=== PATIENT | male | born 1960 | race Caucasian/White ===

== ENCOUNTER → 2021-10-01 10:12 | Outpatient (CLI) | payer OTHER, SELFPAY ==
[2021-10-01 12:00] LABS: COVID19 -Nasal RAPID Negative (Negative)
== END ==
PROVIDERS: Visit Provider Family Medicine Sleep Medicine
DX: Z20.822 Contact with and (suspected) exposure to COVID-19 (principal)
CPT/HCPCS: 87635

== ENCOUNTER → 2021-10-01 12:28 | Outpatient (CLI) | payer OTHER, SELFPAY ==
--- NOTE | 2021-10-01 | DI.ECHO.S_ITS ---
[facility] +---------+ : : [address] : [place] : : : : [id number] : : : : Phone: [phone]---------+ Echocardiogram Report + + :Name: VINICIUS WEBER Study Date: 10/01/2021 Height: 73 in : :[facility] ReadingLocation: Weight: 330 lb : : Gender: Male BSA: 2.7 m2 : :: 1960 Age: 61 yrs BP: 146/101 mmHg: :Reason For Study: Dyspnea : :Ordering Physician: ANALISA : :STEPH Performed By: Jorje Beck : :Referring: STEPH HAUSER : + + Interpretation Summary The ejection fraction is estimated to be 60-65%. Diastolic parameters suggest probable normal left ventricular diastolic function and normal filling pressures. The right ventricle is normal in size and function. No significant valvular abnormalities. Unable to estimate PASP. Procedure: A two-dimensional transthoracic echocardiogram with color flow and Doppler was performed. The study quality was technically difficult. There is no prior echocardiogram noted for this patient. A contrast injection of Definity was performed to improve assessment of LV function. Left Ventricle: Left ventricular wall thickness is borderline increased. The left ventricle is grossly normal size. Left ventricular systolic function is normal. The ejection fraction is estimated to be 60-65%. There are no focal wall motion abnormalities. Diastolic parameters suggest probable normal left ventricular diastolic function and normal filling pressures. Right Ventricle: The right ventricle is normal in size and function. Atria: Both atria are normal in size. The interatrial septum grossly appears intact with no obvious evidence for an atrial septal defect. Mitral Valve: The mitral valve is normal in structure and function. There is no mitral regurgitation noted. Aortic Valve: The aortic valve opens well. There is no aortic valve stenosis. There is trace aortic regurgitation. Tricuspid Valve: The tricuspid valve is normal in structure and function. No tricuspid regurgitation. Pulmonary artery pressures cannot be estimated because of the lack of a measurable TR jet velocity. Pulmonic Valve: The pulmonic valve is not well visualized. Great Vessels: The aortic root is mildly dilated. The ascending aorta could not be visualized. The IVC is of normal diameter and collapses greater than 50% with a sniff. This suggests a low right atrial pressure of 3 mm Hg. Pericardium/ Pleura There is no pericardial effusion. There is no pleural effusion. MMode/2D Measurements & Calculations LVIDd: 0.40 cm LVOT diam: 2.6 cm IVSd: 1.2 cm Ao root diam: 4.1 cm LV wallis. diameter/BSA (cm/m^2): 0.15 LA A2 area: 16.8 cm2 RA long axis: 5.3 cm LA A4 area: 16.1 cm2 LA length (vol): 5.1 cm LA vol: 45.2 ml LA vol index: 17.0 ml/m2 TAPSE_phl: 3.2 cm Doppler Measurements & Calculations Ao V2 max: 125.0 cm/sec LVOT Max Ramírez: 120.0 cm/sec Ao V2 mean: 88.6 cm/sec LV V1 max P.8 mmHg Ao max P.0 mmHg LV V1 VTI: 20.1 cm Ao mean P.0 mmHg CRISELDA(I,D): 5.5 cm2 Ao V2 VTI: 19.3 cm CRISELDA(V,D): 5.1 cm2 sev ratio: 1.0 CRISELDA indexed to BSA (cm^2/m^2): 2.1 MV E max ramírez: 74.2 cm/sec SV(LVOT): 106.7 ml MV A max ramírez: 86.3 cm/sec MV E/A: 0.86 Med Peak E' Ramírez: 8.8 cm/sec E/E' med: 8.4 Lat Peak E' Ramírez: 13.2 cm/sec E/E' lat: 5.6 E/e' average: 7.0 MV dec time: 0.28 sec AV VR_phl: 0.96 MV P1/2t-pr_phl: 82.0 msec CRISELDA(VTI)/BSA_phl: 2.1 Reading Physician:02:18 PM
== END ==
PROVIDERS: PCP Family Medicine; Referring Provider Family Medicine; Visit Provider Family Medicine
DX: I77.810 Thoracic aortic ectasia (principal); R06.00 Dyspnea, unspecified; Z20.822 Contact with and (suspected) exposure to COVID-19
CPT/HCPCS: 87635; 93306; C9803; Q9957

== ENCOUNTER → 2021-10-08 09:49 | Outpatient (CLI) | payer OTHER, SELFPAY ==
[2021-10-08 13:18] LABS: COVID19 -Nasal RAPID Negative (Negative)
--- NOTE | 2021-10-08 14:33 | DI.NM.S_ITS ---
PROCEDURE: NM EXERCISE TREADMILL NON NUC COMPARISON: None. INDICATIONS: CHEST PAIN FINDINGS: the patient exercised for 6 minutes reaching 7.0 METs CECE +25%. Target heart rate achieved (86% of maximum predicted heart rate reached). Appropriate BP response to exercise. No angina and no ST changes with exercise. IMPRESSION: Low risk, normal treadmill ECG only stress test with mildly to moderately reduced exercise capacity (CECE +25%). No angina and no ST changes with exercise. Target heart rate achieved. Dictated by: Fabricio Beth MD on 10/08/2021 at 16:14 Approved by: Fabricio Beth MD on 10/08/2021 at 16:15
== END ==
PROVIDERS: PCP Family Medicine; Referring Provider Family Medicine; Visit Provider Family Medicine
DX: R07.9 Chest pain, unspecified (principal); Z20.822 Contact with and (suspected) exposure to COVID-19
CPT/HCPCS: 87635; 93017; C9803